=== PATIENT | male | born 1950 | race Caucasian/White ===

== ENCOUNTER → 2021-01-26 | Outpatient (CLI) | payer OTHER ==
[~2021-01-26] MED LIST: ACET325T14 PO; ASPI81TA45 PO; CARV-39 PO; DULO20CA45 PO; FINA5TAB4 PO; LOSA100T14 PO; OMEG-170 PO; OXYB15TA18 PO; SIMV10TA18 PO; verapamil PO
[2021-01-26 12:20] LABS: MICROSCOPIC NOT IND
[2021-01-26 12:21] LABS: BASOPHILS % (AUTO) 0 % (0-1); EOSINOPHILS % (AUTO) 4 % (1-7); LYMPHOCYTES % (AUTO) 27 % (22-44); MEAN CORPUSCULAR HEMOGLOBIN 32.2 pg (27.5-34.5); MEAN CORPUSCULAR HGB CONC 34.3 g/dL (33.2-36.2); MEAN PLATELET VOLUME 6.9 fL (7.4-10.4); MONOCYTES % (AUTO) 10 % (2-9); NEUTROPHILS % (AUTO) 59 % (42-75); PLATELET COUNT 287 x10^3/uL (130-400); RED BLOOD COUNT 4.63 x10^6/uL (4.38-5.82); RED CELL DISTRIBUTION WIDTH 13.1 % (9.4-14.8)
[2021-01-26 12:30] LABS: ANION GAP 9 mmol/L (5-15); CALCIUM 9.2 mg/dL (8.5-10.1); CHLORIDE 110 mmol/L (98-107); CREATININE 1.07 mg/dL (0.7-1.3)
[2021-01-26 12:38] LABS: INTERNATIONAL NORMALIZED RATIO 0.95 (0.93-1.1); PROTHROMBIN TIME 10.2 Seconds (9.6-11.5)
== END | disposition home or self-care (01) ==
LOC: STAR 10:40
PROVIDERS: ATTEND Urology
DX: Z01.818 Encounter for other preprocedural examination (principal); N20.0 Calculus of kidney; I44.0 Atrioventricular block, first degree; Z20.822 Contact with and (suspected) exposure to COVID-19
CPT/HCPCS: 36415; 80048; 81003; 85025; 85610; 87086; 93005; U0003; U0005

== ENCOUNTER 2021-02-01 10:47 | Day surgery (SDC) | payer OTHER ==
[~2021-02-01] VITALS: Ht 188 cm; Wt 95.5 kg
[~2021-02-01 10:47] MED LIST changes: +ACETAMINOPHEN 325 MG TABLET PO PRN; +EPHEDRINE 50 MG/ML, 1ML IVPush PRN; +FENTANYL PF 100 MCG/2ML IV PRN; +HYDROmorphone 1 MG/ML, 1ML INJ IVPush PRN; +LABETALOL 5MG/ML, 20ML IV PRN; +ONDANSETRON 2MG/ML, 2ML IVPush PRN; +OXYcodone 5 MG/5 ML ORAL.SOL UDC PO PRN; +PROMETHAZINE 25 MG/ML, 1ML IVPush PRN; +hydrALAzine 20 MG/ML, 1ML IV PRN
[2021-02-01] MEDS ORDERED: MULT-658 PO (11:28)
[2021-02-01] MEDS ORDERED: SILD50TA PO (11:28)
[2021-02-01] MEDS ORDERED: TADA20TA PO (11:28)
[2021-02-01] MEDS ORDERED: FINA5TAB4 PO (11:28)
[2021-02-01] MEDS ORDERED: OXYB15TA18 PO (11:28)
[2021-02-01] MEDS ORDERED: ASPI81TA45 PO (11:28)
[2021-02-01] MEDS ORDERED: VERA120C2 PO (11:28)
[2021-02-01] MEDS ORDERED: VITAMIN B-12 PO (11:28)
[2021-02-01] MEDS ORDERED: DICL100G25 TP (11:28)
[2021-02-01] MEDS ORDERED: PANT20TA4 PO (11:28)
[2021-02-01] MEDS ORDERED: DULO20CA45 PO (11:28)
[2021-02-01] MEDS ORDERED: CINNAMON PO (11:28)
[2021-02-01] MEDS ORDERED: LOSA100T14 PO (11:28)
[2021-02-01] MEDS ORDERED: PRAV10TA2 PO (11:28)
[2021-02-01] MEDS ORDERED: OMEG1CAP23 PO (11:28)
[2021-02-01] MEDS ORDERED: PSYL174P2 PO (11:28)
[2021-02-01] MEDS ORDERED: VITAMIN D PO (11:28)
[2021-02-01] MEDS ORDERED: DICL50TA4 PO (11:28)
[2021-02-01] MEDS ORDERED: CARV-39 PO (11:28)
[2021-02-01] MEDS ORDERED: CHLORHEXIDINE 15 ML UDC PO ONE (11:30)
[2021-02-01] MEDS ORDERED: LACTATED RINGERS 1,000 ML IV SCH (11:30)
[2021-02-01] MEDS ORDERED: FENTANYL PF 250 MCG/5ML ONE (11:56)
[2021-02-01] MEDS ORDERED: GLYCOPYRROLATE 0.2MG/1ML, 5ML ONE (14:25)
[2021-02-01] MEDS ORDERED: PROPOFOL 10 MG/ML, 20ML ONE (14:26)
[2021-02-01] MEDS ORDERED: LIDOCAINE-MPF 2% ,5ML ONE (14:26)
[2021-02-01] MEDS ORDERED: DEXAMETHASONE 4 MG/ML, 1ML ONE (14:26)
[2021-02-01] MEDS ORDERED: SUCCINYLCHOLINE 20 MG/ML, 10ML ONE (14:26)
[2021-02-01] MEDS ORDERED: ONDANSETRON 2MG/ML, 2ML ONE (14:26)
[2021-02-01] MEDS ORDERED: PHENYLEPHRINE 10 MG/ML ONE (14:41)
== END 2021-02-01 17:50 | disposition home or self-care (01) ==
LOC: OUT 10:47
PROVIDERS: ATTEND Urology
DX: N20.0 Calculus of kidney (principal); I25.10 Atherosclerotic heart disease of native coronary artery without angina pectoris; I10 Essential (primary) hypertension; Z88.8 Allergy status to other drugs, medicaments and biological substances; Z79.82 Long term (current) use of aspirin; Z79.899 Other long term (current) drug therapy; Z79.1 Long term (current) use of non-steroidal anti-inflammatories (NSAID); Z87.891 Personal history of nicotine dependence
CPT/HCPCS: 50590; J0330; J1100; J2370; J2405; J2704; J3010; J7120